=== PATIENT | male | born 1995 | race Caucasian/White ===

== ENCOUNTER → 2018-06-25 00:03 | Emergency (ER) | payer BC ==
[~2018-06-25 00:03] MED LIST: Acetaminophen TAB* 325 MG PO ONE
--- NOTE | 2018-06-25 01:19 | ED ---
GI/ HPI - HPI Summary HPI Summary: Patient is a 23 y/o M presenting to ED with complaints of abdominal bruising and blood in stool. He states that he has "multiple" GI issues and is scheduled for colonscopy. Patient has had bruise on RLQ area for the past few weeks. He states that this bruise spontaneously went away. However, today, he took a nap and then the bruise reappeared. He notes that he did not experience any trauma to this area. Patient is on lithium and effexor. No other bruises on body are reported. Patient notes that the bruise is darker in color and slightly larger than previously. On triage, pain is rated 2/10. Nothing is noted to aggravate/ alleviate Sx. Home medications and allergies are reviewed. - History of Current Complaint Chief Complaint: EDGIBleed Time Seen by Provider: 06/25/18 01:10 Stated Complaint: "POSS GI PROBLEM, WITH BRUISING ON ABD" PER PT Hx Obtained From: Patient Onset/Duration: Started Weeks Ago - bruise first appeared a few weeks ago, Still Present, Worse Since - bruised area expanded/got darker today Timing: Lasting Hours - bruised area expanded/got darker today, Lasting Weeks - bruise first appeared a few weeks ago Current Severity: Mild - 2/10 Pain Intensity: 2 Associated Signs and Symptoms: Positive: Bruising, Blood w/Stool Aggravating Factor(s): Nothing Alleviating Factor(s): Nothing - Allergy/Home Medications Allergies/Adverse Reactions: Allergies Allergy/AdvReac Type Severity Reaction Status Date / Time bupropion [From Wellbutrin] Allergy Unknown Verified 06/24/18 10:56 Reaction Details oxcarbazepine Allergy Unknown Verified 06/24/18 10:56 [From Trileptal] Reaction Details PMH/Surg Hx/FS Hx/Imm Hx Sensory History: Denies: Hx Legally Blind, Hx Deafness Opthamlomology History: Denies: Hx Legally Blind EENT History: Denies: Hx Deafness Infectious Disease History: No Infectious Disease History: Denies: Traveled Outside the [place] in Last 30 Days - Family History Known Family History: Positive: Diabetes, Other - thyroid problems, stomach ulcers - Social History Alcohol Use: Occasionally Substance Use Type: Reports: Cocaine, Marijuana Smoking Status (MU): Current Every Day Smoker Review of Systems Negative: Fever - on vitals, temp is 98.1 F Genitourinary: Other - POSITIVE - BLOOD IN STOOL Musculoskeletal: Other - POSITIVE - ECCHYMOTIC AREA AT RLQ All Other Systems Reviewed And Are Negative: Yes Physical Exam - Summary Physical Exam Summary: VITAL SIGNS: Reviewed. GENERAL: Patient is a well-developed and nourished male who is lying comfortable in the stretcher. Patient is not in any acute respiratory distress. HEAD AND FACE: No signs of trauma. No ecchymosis, hematomas or skull depressions. No sinus tenderness. EYES: PERRLA, EOMI x 2, No injected conjunctiva, no nystagmus. EARS: Hearing grossly intact. Ear canals and tympanic membranes are within normal limits. MOUTH: Oropharynx within normal limits. NECK: Supple, trachea is midline, no adenopathy, no JVD, no carotid bruit, no c- spine tenderness, neck with full ROM. CHEST: Symmetric, no tenderness at palpation LUNGS: Clear to auscultation bilaterally. No wheezing or crackles. CVS: Regular rate and rhythm, S1 and S2 present, no murmurs or gallops appreciated. ABDOMEN: Soft, non-tender. No signs of distention. No rebound no guarding, and no masses palpated. Bowel sounds are normal. EXTREMITIES: FROM in all major joints, no edema, no cyanosis or clubbing. NEURO: Alert and oriented x 3. No acute neurological deficits. Speech is normal and follows commands. SKIN: Dry and warm; 2.5 x 1.5 inch ecchymotic area at RLQ that is tender Triage Information Reviewed: Yes Vital Signs On Initial Exam: Initial Vitals Temp Pulse Resp BP Pulse Ox 98.1 F 98 20 148/101 98 06/25/18 00:20 06/25/18 00:20 06/25/18 00:20 06/25/18 00:20 06/25/18 00:20 Vital Signs Reviewed: Yes Diagnostics - Vital Signs Vital Signs Temp Pulse Resp BP Pulse Ox 06/25/18 00:20 98.1 F 98 20 148/101 98 - Laboratory Result Diagrams: 06/25/18 01:27 Lab Statement: Any lab studies that have been ordered have been reviewed, and results considered in the medical decision making process. GIGU Course/Dx - Course Course Of Treatment: Patient is a 23 y/o M presenting to ED with complaints of abdominal bruising and blood in stool. He states that he has "multiple" GI issues and is scheduled for colonscopy. Patient has had bruise on RLQ area for the past few weeks. He states that this bruise spontaneously went away. However , today, he took a nap and then the bruise reappeared. He notes that he did not experience any trauma to this area. Patient is on lithium and effexor. No other bruises on body are reported. Patient notes that the bruise is darker in color and slightly larger than previously. On physical exam, 2.5 x 1.5 inch ecchymotic area at RLQ that is tender is noted. Labs showed RBC 4.17, Hgb 12.5 , absolute monos 1, trop 0.01, CRP 34.63, total protein 6.2, globulin 1.9, TSH 2.33. During ED course, patinet was given Tylenol 650 mg PO. . Patient was discharged to home and will follow up with PCP - Diagnoses Provider Diagnoses: Ecchymosis Discharge - Sign-Out/Discharge Documenting (check all that apply): Patient Departure - discharge Patient Received Moderate/Deep Sedation with Procedure: No - Discharge Plan Condition: Stable Disposition: HOME Patient Education Materials: Contusion in Adults (ED) Referrals: [facility] [Outside] - 3 Days Additional Instructions: PLEASE RETURN TO THE EMERGENCY DEPARTMENT IMMEDIATELY FOR WORSENING OR CONCERNING SYMPTOMS. FOLLOW UP WITH YOUR PRIMARY CARE PHYSICIAN WITHIN THREE DAYS. - Attestation Statements Document Initiated by Scribe: Yes Documenting Scribe: ROSALIND ZAZUETA Provider For Whom Mando is Documenting (Include Credential): MANUEL SEVILLA MD Scribe Attestation: IROSALIND, scribed for MANUEL SEVILLA MD on 06/25/18 at 0309. Status of Scribe Document: Ready
[2018-06-25 01:44] LABS: ABS Basophils 0.1 10^3/ul (0-0.2); ABS Eosinophils 0.1 10^3/ul (0-0.6); ABS Lymphocytes 1.9 10^3/ul (1.0-4.8); ABS Monocytes 0.5 10^3/ul (0-0.8); ABS Neutrophils 7.9 10^3/ul (1.5-7.7); ABS Nucleated RBC 0 10^3/ul; Eosinophil % 0.6 %; Hematocrit 42 % (36-46); Hemoglobin 13.7 g/dL (14.0-18.0); Lymphocyte % 18.2 %; Mean Corpuscular HGB Conc 33 g/dL (31-36); Mean Corpuscular Hemoglobin 29 pg (27-31); Mean Corpuscular Volume 88 fL (80-94); Mean Platelet Volume 7.9 fL (7.4-10.4); Nucleated Red Blood Cells % 0; Platelet Count 313 10^3/uL (150-450); Red Blood Count 4.72 10^6 /uL (4.18-5.48); Red Cell Distribution Width 14 % (10.5-15); White Blood Count 10.4 10^3/uL (3.5-10.8)
[2018-06-25 01:53] LABS: Activated Partial Thrombo Time 31.1 seconds (26.0-36.3); INR 0.94 (0.77-1.02)
[2018-06-25 02:16] VITALS: BP 135/88
== END | disposition home or self-care (01) ==
LOC: ED 00:03
DX: R23.3 Spontaneous ecchymoses (principal); F17.210 Nicotine dependence, cigarettes, uncomplicated
CPT/HCPCS: 36415; 85025; 85610; 85730; 99283; A9270-GY